=== PATIENT | male | born 1965 | race Two or more races ===

== ENCOUNTER → 2018-02-15 | Day surgery (SDC) | payer BC ==
[~2018-02-15] MED LIST: IV RINGERS,LACTATED 1000ML 1,000 ML IV SCH; LIDOCAINE 1% PF 2 ML VIAL. ID PRN; LIDOCAINE 1% PF 5 ML VIAL. ONE; MIDAZOLAM HCL/PF 2 MG/2 ML VIAL. IV PRN; PROPOFOL 20 ML IV ONE; fentaNYL PF VIAL 100 MCG/2 ML VIAL IV PRN
--- NOTE | 2018-02-15 08:57 | PDOC1 ---
HISTORY & PHYSICAL H&P Rene Moreno [id number] 1965 02/02/2018 02:30 PM 05/17 [employer] [facility], [facility] OUR PATIENTS COME FIRST [address] [place] [address]. [phone] Patient: Rene Moreno Date of : 1965 Date: 02/02/2018 2:30 PM Visit Type: Consult This 52 year old male presents for abdominal pain, Rectal bleeding and Screening colonoscopy. History of Present Illness: 1. abdominal pain Rene Moreno is a 52 year old male who presents for evaluation of abdominal pain. The problem is ongoing. The symptoms began 6 months ago. The severity is mild. The location is epigastric, mable-umbilical and RUQ. The patient describes it as aching, bloating and gnawing. There are no aggravating factors. There are no relieving factors. The pertinent history includes: Has been given Omeprazole. Better with reflux but bloating no change.. There are no associated symptoms involved. He is not experiencing has no pertinent negatives. He has had no prior studies. Onset: 3 weeks ago. Quality: BRBPR w/ bowel movement. Additional information: Patient had rectal bleeding once 3 weeks ago. Never had EGD or colonoscopy. Blood work at PCP has been okay. No prior screening. Denies risk factors. Associated symptoms include abdominal pain and rectal bleeding. Pertinent negatives include change in bowel habits, change in stool caliber, constipation, decreased appetite, diarrhea, melena, nausea, vomiting, weight gain and weight loss. Additional information: No family history of colon cancer, No family history of Crohn's/ colitis, No NSAID/ASA use and Never had colonoscopy. INTAKE COMMENTS: Intake Comments: patient states he is here for a colonoscopy and EGD PAST MEDICAL/SURGICAL HISTORY (Detailed) Family History (Detailed) Social History: (Detailed) Tobacco use reviewed. Preferred language is Serbian. Tobacco use status: Current non-smoker. Smoking status: Never smoker. SMOKING STATUS Type Smoking Status Usage Per Day Years Used Total Pack Years Never smoker Medications (active prior to today) Medication Name Sig Description Start Date Stop Date Refilled Rx Elsewhere omeprazole 20 mg capsule,delayed release take 1 capsule by oral route every day before a meal // Y Medications (Added, Continued or Stopped today) Start Date Medication Directions PRN Status PRN Reason Instruction Stop Date omeprazole 20 mg capsule,delayed release take 1 capsule by oral route every day before a meal N Allergies: Ingredient Reaction (Severity) Medication Name Comment NO KNOWN ALLERGIES Review of Systems System Neg/Pos Details Constitutional Negative Chills, Fever, Malaise, Weight gain and Weight loss. ENMT Negative Sore throat. Eyes Negative Double vision. Respiratory Negative Dyspnea and Wheezing. Cardio Negative Chest pain and Irregular heartbeat/palpitations. GI Positive Abdominal pain, Rectal bleeding, See HPI. GI Negative Change in bowel habits, Change in stool caliber, Constipation, Decreased appetite, Diarrhea, Melena, Nausea, See HPI and Vomiting. Negative Dysuria and Hematuria. Endocrine Negative Cold intolerance and Heat intolerance. Psych Negative Anxiety. Integumentary Negative Hives and Rash. MS Negative Joint pain. Derrick/Lymph Negative Easy bleeding and Easy bruising. Allergic/Immuno Negative Food allergies. Vital Signs Time BP mm/Hg Pulse /min Resp /min Temp F Ht ft Ht in Ht cm Wt lb Wt kg BMI kg/ m2 BSA m2 O2 Sat% 2:34 PM 130/80 107 16 98.5 200.00 90.718 96 Measured By Time Measured by 2:34 PM Belle Swygert PHYSICAL EXAM: Exam Findings Details Constitutional Normal Well developed. Eyes Normal Conjunctiva - Right: Normal, Left: Normal. Sclera - Right: Normal, Left: Normal. Nasopharynx Normal Lips/teeth/gums - Normal. Neck Exam Normal Inspection - Normal. Thyroid gland - Normal. Respiratory Normal Inspection - Normal. Auscultation - Normal. Cardiovascular Normal Regular rate and rhythm. No murmurs, gallops, or rubs. Abdomen Normal Inspection - Normal. Anterior palpation - No guarding. No abdominal tenderness. No hepatic enlargement. No spleen enlargement. No hernia. No ascites. Skin Normal Inspection - Normal. Extremity Normal No edema. Psychiatric Normal Orientation - Oriented to time, place, person & situation. Appropriate mood and affect. Assessment/Plan # Detail Type Description 1. Assessment Pain of upper abdomen (R10.10). Patient Plan schedule EGD at [facility] Plan Orders Further diagnostic evaluations ordered today include(s) EGD to be performed today. 2. Assessment Rectal bleeding (K62.5). Patient Plan schedule colonoscopy at [facility] Plan Orders He is to schedule a follow-up visit with Robert Ruffin MD upon completion of work-up. 3. Assessment Encounter for screening colonoscopy (Z12.11). Patient Plan await colonoscopy. Co-Sign Orders Order Ordering Provider Cosigned Name Cosigned Date Cosigner Comments EGD Robert Ruffin 02/02/2018 follow-up visit with Robert Ruffin MD upon completion of work-up Robert Ruffin 02/02/2018 Document Electronically signed: Robert Ruffin MD 02/02/2018 02:52 PM Document generated by: Robert Ruffin 02/02/2018 Kayleen Ramirez MD, Family Practice; Kalpesh Whipple MD Internal Medicine; Daniela Gregorio MD, Internal Medicine; Neha Ruffin MD Internal Medicine; Robert Ruffin MD, Gastroenterology; Ollie Hampton MD, Rheumatology, Yarelis Britt WHITE ------ 02/15/18 Patient seen and examined. No change in H&P ROBERT RUFFIN MD Feb 15, 2018 08:57
[2018-02-15 10:20] VITALS: BP 125/77
--- NOTE | 2018-02-16 12:09 | PATHOLOGY ---
[facility] Accession Number: [id number] . 01 Material submitted: . LOWER ESOPHAGUS BIOPSY . 01 Clinical history: . Pre-OP DX: Abdominal pain, rectal bleeding Post-OP DX: Esophagitis . 02 Diagnosis: Esophageal biopsy, lower esophagus: - Segment of squamous esophageal mucosa identified. . (JPM:mml; 02/16/18) M/02/16/2018 . 02 Comment: Sections of the lower esophageal biopsy reveal a segment of squamous esophageal mucosa showing no significant pathologic abnormalities. There are no intraepithelial eosinophils or neutrophils. There is no evidence of Hsieh's change, dysplasia, or malignancy. . (JPM:mml; 02/16/18) . 02 Electronically signed: . Joes Juan Bentley MD, Pathologist NPI- [id number] . 01 Gross description: . Received in formalin labeled "Rene Moreno, lower esophagus BX," is a single segment of es[place] soft tissue measuring 0.5 cm in maximum dimension. The specimen is entirely submitted in cassette A1. (TSD; 02/15/2018) TOB/TOB . 02 Pathologist provided ICD-10: R10.9 . 02 CPT . 062278 Specimen Comment: A courtesy copy of this report has been sent to Specimen Comment: [phone], . Specimen Comment: Report sent to / DR BECK Specimen Comment: A duplicate report has been generated due to demographic updates. Performed at: [facility] [address], [place] [id number] MD German Grant MD Phone: [phone] Performed at: 02 [facility] [address], [place] [id number] MD Jose Juan Bentley MD Phone: [phone]
== END | disposition home or self-care (01) ==
LOC: SURG 08:41
PROVIDERS: ATTEND Internal Medicine Gastroenterology
DX: K57.30 Diverticulosis of large intestine without perforation or abscess without bleeding (principal); K21.0 Gastro-esophageal reflux disease with esophagitis; K44.9 Diaphragmatic hernia without obstruction or gangrene; Z79.899 Other long term (current) drug therapy
CPT/HCPCS: 43239; 45378; 88305; J2704